=== PATIENT | male | born 1970 | race Caucasian/White ===

== ENCOUNTER 2022-05-19 10:36 | Observation (INO) ==
[2022-05-19 11:10] LABS: Hematocrit 44.5 % (37.5-50.1); Hemoglobin 15.6 g/dL (12.9-16.9); Mean Corpuscular HGB Conc 35.1 g/dL (31.6-35.5); Mean Corpuscular Hemoglobin 31.9 pg (28.0-33.3); Mean Platelet Volume 10.4 fL (9.4-12.4); Platelet Count 183 K/mcL (140-400); Red Blood Count 4.89 M/mcL (4.19-5.50); White Blood Count 7.4 K/mcL (4.3-11.1)
[2022-05-19 11:31] LABS: BUN/Creatinine Ratio 14 (6-26); Blood Urea Nitrogen 14 mg/dL (6-20); Calcium 9.2 mg/dL (8.6-10.3); Carbon Dioxide 21 mEq/L (23-29); Chloride 109 mEq/L (98-107); Glucose 125 mg/dL (70-105); Osmolality,Calculated 290 (280-300); Potassium 3.4 mEq/L (3.5-5.1); Sodium 139 mEq/L (136-145)
[2022-05-19 11:32] LABS: Troponin I < 0.03 ng/mL (< 0.04)
[2022-05-19] MEDS ORDERED: Aspirin 325 MG TABLET PO ONE (12:35)
[2022-05-19] MEDS ORDERED: Acetaminophen 325 MG TABLET PO PRN (12:51)
[2022-05-19] MEDS ORDERED: Ondansetron 4 MG/2 ML VIAL IVP PRN (12:51)
[2022-05-19] MEDS ORDERED: Melatonin 3 MG TABLET PO PRN (12:51)
[2022-05-19 13:25] LABS: Chol/HDL Ratio 3.8 (0-4.9); Cholesterol 140 mg/dL (< 200); HDL Cholesterol 37 mg/dL (40-59); LDL Cholesterol,Calculated 81 mg/dL (< 100); Triglycerides 109 mg/dL (< 150)
[2022-05-19 13:49] LABS: Estimated Average Glucose 123 mg/dl; Hemoglobin A1C 5.9 %
[2022-05-19] MEDS ORDERED: Nicotine 2 MG GUM BC PRN (15:01)
[2022-05-19] MEDS: Nicotine 21 MG PATCH.TD24 TD SCH (16:03)
[2022-05-19] MEDS: predniSONE 20 MG TABLET PO SCH (16:03)
[2022-05-19] MEDS ORDERED: Iopamidol - 370 500 ML MLS IVP ONE (16:22)
[2022-05-20] MEDS: predniSONE 20 MG TABLET PO SCH (08:27)
[2022-05-20] MEDS: Nicotine 21 MG PATCH.TD24 TD SCH (08:28)
[2022-05-20] MEDS ORDERED: Aspirin 81 MG TAB.CHEW PO SCH (09:00)
[2022-05-20 09:50] LABS: Calcium 9.1 mg/dL (8.6-10.3); Magnesium 1.5 mg/dL (1.6-2.6); Potassium 3.4 mEq/L (3.5-5.1)
[2022-05-20 15:09] VITALS: BP 173/106; PULSE 79; TEMP 97.9; O2SAT 96
== END 2022-05-20 17:12 | disposition home or self-care (01) ==
LOC: 3BNU 10:36 → EMEROOARM 10:36 → SUATTDRO 13:18 → 3BNU 13:59
PROVIDERS: ADMIT Internal Medicine; ATTEND Internal Medicine